=== PATIENT | female | born 1985 | race Caucasian/White ===

== ENCOUNTER 2017-10-08 15:12 | Emergency (ER) | payer BC ==
[2017-10-08 15:18] VITALS: BP 147/94; PULSE 73; RESP 20; TEMP 97.4
--- NOTE | 2017-10-08 15:39 | ED ---
Skin/Abscess/FB HPI - General Chief complaint: Needlestick/Exposure Stated complaint: Needle Stick Time Seen by Provider: 10/08/17 15:30 Source: patient Mode of arrival: ambulatory Limitations: no limitations - History of Present Illness Initial comments: 32-year-old female patient presents to the emergency department today for evaluation after sustaining a needlestick injury. Patient states yesterday she was suturing and an arterial line when the needle scraped her finger. She states that she did clean the wound yesterday. She states that she is up-to- date on her tetanus immunization. 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 She denies any difficulty with range of motion to the finger. Denies any redness, swelling, or pain to the area. Denies any fevers or chills. - Related Data Allergies Allergy/AdvReac Type Severity Reaction Status Date / Time No Known Allergies Allergy Verified 10/08/17 15:18 Review of Systems ROS Statement: Those systems with pertinent positive or pertinent negative responses have been documented in the HPI. ROS Other: All systems not noted in ROS Statement are negative. Past Medical History Past Medical History: Thyroid Disorder History of Any Multi-Drug Resistant Organisms: None Reported Additional Past Surgical History / Comment(s): thyroidectomy Past Psychological History: No Psychological Hx Reported Smoking Status: Never smoker Past Alcohol Use History: None Reported Past Drug Use History: None Reported General Exam Limitations: no limitations General appearance: alert, in no apparent distress, other (This is a well- developed, well-nourished adult female patient in no acute distress. Vital signs upon presentation are temperature 97.4F, pulse 73, respirations 20, blood pressure 147/94, pulse ox 96% on room air.) Respiratory exam: Present: normal lung sounds bilaterally. Absent: respiratory distress, wheezes, rales, rhonchi, stridor Cardiovascular Exam: Present: regular rate, normal rhythm, normal heart sounds. Absent: systolic murmur, diastolic murmur, rubs, gallop, clicks Extremities exam: Present: full ROM, normal capillary refill, other (Patient has small puncture wound noted over the proximal interphalangeal joint of the right third digit, palmar aspect. Neurovascular status is intact.). Absent: normal inspection, tenderness, pedal edema, joint swelling, calf tenderness Neurological exam: Present: alert, oriented X3, CN II-XII intact Psychiatric exam: Present: normal affect, normal mood Skin exam: Present: warm, dry, intact, normal color. Absent: rash Course Vital Signs 10/08/17 15:15 Temperature 97.4 F L Pulse Rate 73 Respiratory 20 Rate Blood Pressure 147/94 O2 Sat by Pulse 96 Oximetry Medical Decision Making - Medical Decision Making 32-year-old female patient presents to the emergency department today for evaluation after sustaining a needlestick injury yesterday. We did draw postexposure labs. Patient will be instructed to follow-up with [facility]. She is instructed to return here immediately for any new, worsening, or concerning symptoms. She verbalizes understanding and agrees with this plan. Disposition Clinical Impression: Needlestick injury accident Disposition: HOME SELF-CARE Condition: Good Instructions: Body Substance Exposure (ED) Additional Instructions: Keep area clean and dry. Follow-up with [facility] phone number is [phone] for information regarding further testing. Return here immediately for any new, worsening, or concerning symptoms. Referrals: None,Stated [Primary Care Provider] - 1-2 days Time of Disposition: 15:39
[2017-10-09 01:17] LABS: Hepatitis B Surface AB- Quant 56.7 mIU/mL; Hepatitis C IgG Antibody Non-Reactive (Non-Reactive)
[2017-10-09 01:18] LABS: HIV AB P24 Non-Reactive (Non-Reactive); HIV P24 AG Non-Reactive (Non-Reactive)
== END 2017-10-08 16:02 | disposition home or self-care (01) ==
LOC: EC 15:12
DX: S61.232A Puncture wound without foreign body of right middle finger without damage to nail, initial encounter (principal); W46.0XXA Contact with hypodermic needle, initial encounter; Y93.89 Activity, other specified
CPT/HCPCS: 36415; 86706; 86803; 87390; 99283